=== PATIENT | male | born 1950 | race Caucasian/White ===

== ENCOUNTER → 2024-03-10 11:54 | Outpatient (REF) | payer MEDICARE, OTHER, SELFPAY ==
[2024-03-10 14:10] LABS: ALT (SGPT) 21 U/L (0-50); AST (SGOT) 33 U/L (17-59); Albumin 4.5 g/dl (3.5-5.0); Alkaline Phosphatase 79 U/L (38-126); Blood Urea Nitrogen 18 mg/dl (9-20); Calcium 9.9 mg/dl (8.4-10.2); Carbon Dioxide 30 mmol/L (22-30); Chloride 102 mmol/L (98-107); Glucose 79 mg/dl (70-99); HDL Cholesterol 66 mg/dl; LDL Cholesterol, Calculated 63 mg/dl; Potassium 4.4 mmol/L (3.5-5.1); Sodium 139 mmol/L (135-145); Total Bilirubin 1.7 mg/dl (0.2-1.3); Total Cholesterol 141 mg/dl (50-199); Total Protein 7.1 g/dl (6.3-8.2); Triglyceride 64 mg/dl (10-149); Very Low Density Lipoprotein 12 mg/dl (0-30); eGFR > 60.00
[2024-03-10 14:40] LABS: PSA, Total - Screen 2.55 ng/ml (0.0-4.0)
== END ==
LOC: REG 11:54
PROVIDERS: ATTENDING PHYSICIAN Family Medicine
DX: E78.2 Mixed hyperlipidemia (principal); Z12.5 Encounter for screening for malignant neoplasm of prostate
CPT/HCPCS: 36415; 80053; 80061; G0103

== ENCOUNTER → 2024-04-23 07:33 | Outpatient (REF) | payer MEDICARE, OTHER, SELFPAY | LOC: RAD 07:33 | PROVIDERS: ATTENDING PHYSICIAN Family Medicine | DX: N50.89 Other specified disorders of the male genital organs (principal); M79.89 Other specified soft tissue disorders | CPT/HCPCS: 76870; 93976 ==

== ENCOUNTER → 2024-09-10 11:40 | Outpatient (REF) | payer MEDICARE, OTHER, SELFPAY ==
[2024-09-10 15:18] LABS: HDL Cholesterol 58 mg/dl; LDL Cholesterol, Calculated 79 mg/dl; Total Cholesterol 152 mg/dl (50-199); Triglyceride 78 mg/dl (10-149); Very Low Density Lipoprotein 15 mg/dl (0-30)
[2024-09-10 15:46] LABS: TSH 1.28 uIU/ml (0.47-4.68)
== END ==
LOC: REG 11:40
PROVIDERS: ATTENDING PHYSICIAN Physician Assistant; FAMILY PHYSICIAN Family Medicine
DX: E78.2 Mixed hyperlipidemia (principal); R00.2 Palpitations
CPT/HCPCS: 36415; 80061; 84443

== ENCOUNTER → 2024-09-17 16:13 | Outpatient (REF) | payer MEDICARE, OTHER, SELFPAY | LOC: RAD 16:13 | PROVIDERS: ATTENDING PHYSICIAN Family Medicine | DX: R93.89 Abnormal findings on diagnostic imaging of other specified body structures (principal) | CPT/HCPCS: 72072 ==

== ENCOUNTER → 2024-09-18 09:43 | Outpatient (REF) | payer MEDICARE, OTHER, SELFPAY | LOC: RCS 09:43 | PROVIDERS: ATTENDING PHYSICIAN Family Medicine | DX: R00.2 Palpitations (principal) | CPT/HCPCS: 93225; 93226 ==

== ENCOUNTER → 2024-10-27 13:30 | Outpatient (REF) | payer MEDICARE, OTHER, SELFPAY | LOC: RCS 13:30 | PROVIDERS: ATTENDING PHYSICIAN Student in an Organized Health Care Education/Training Program; FAMILY PHYSICIAN Family Medicine; REFERRING PHYSICIAN Specialist | DX: E78.2 Mixed hyperlipidemia (principal) | CPT/HCPCS: 93306 ==

== ENCOUNTER 2024-12-01 06:15 | Day surgery (SDC) | payer MEDICARE, OTHER, SELFPAY | END 2024-12-01 11:06 | disposition home or self-care (01) | LOC: GI 06:15 | PROVIDERS: ATTENDING PHYSICIAN Specialist; FAMILY PHYSICIAN Family Medicine | DX: R12 Heartburn (principal); K31.7 Polyp of stomach and duodenum; K22.89 Other specified disease of esophagus; K20.90 Esophagitis, unspecified without bleeding | CPT/HCPCS: 43239; 88305 ==

== ENCOUNTER → 2025-03-11 11:14 | Outpatient (REF) | payer MEDICARE, OTHER, SELFPAY ==
[2025-03-11 13:04] LABS: ALT (SGPT) 19 U/L (0-50); AST (SGOT) 27 U/L (17-59); Albumin 4.5 g/dl (3.5-5.0); Alkaline Phosphatase 73 U/L (38-126); Blood Urea Nitrogen 22 mg/dl (9-20); Calcium 9.4 mg/dl (8.4-10.2); Carbon Dioxide 29 mmol/L (22-30); Chloride 103 mmol/L (98-107); Glucose 78 mg/dl (70-99); HDL Cholesterol 48 mg/dl; LDL Cholesterol, Calculated 80 mg/dl; Potassium 4.7 mmol/L (3.5-5.1); Sodium 141 mmol/L (135-145); Total Bilirubin 1.8 mg/dl (0.2-1.3); Total Cholesterol 141 mg/dl (50-199); Total Protein 6.6 g/dl (6.3-8.2); Triglyceride 69 mg/dl (10-149); Very Low Density Lipoprotein 13 mg/dl (0-30); eGFR > 60.00
== END ==
LOC: REG 11:14
PROVIDERS: ATTENDING PHYSICIAN Family Medicine
DX: E78.2 Mixed hyperlipidemia (principal)
CPT/HCPCS: 36415; 80053; 80061

== ENCOUNTER → 2025-05-09 09:13 | Outpatient (REF) | payer MEDICARE, OTHER, SELFPAY ==
[2025-05-09 11:41] LABS: PSA, Total - Screen 2.97 ng/ml (0.0-4.0)
== END ==
LOC: REG 09:13
PROVIDERS: ATTENDING PHYSICIAN Nurse Practitioner Family
DX: Z12.5 Encounter for screening for malignant neoplasm of prostate (principal)
CPT/HCPCS: 36415; G0103

== ENCOUNTER → 2025-09-25 15:32 | Outpatient (REF) | payer MEDICARE, OTHER, SELFPAY ==
[2025-09-25 16:40] LABS: ALT (SGPT) 23 U/L (0-50); AST (SGOT) 29 U/L (17-59); Albumin 4.5 g/dl (3.5-5.0); Alkaline Phosphatase 68 U/L (38-126); Blood Urea Nitrogen 19 mg/dl (9-20); Calcium 9.4 mg/dl (8.4-10.2); Carbon Dioxide 32 mmol/L (22-30); Chloride 102 mmol/L (98-107); Glucose 82 mg/dl (70-99); HDL Cholesterol 55 mg/dl; LDL Cholesterol, Calculated 86 mg/dl; Potassium 3.9 mmol/L (3.5-5.1); Sodium 139 mmol/L (135-145); Total Protein 6.9 g/dl (6.3-8.2); Very Low Density Lipoprotein 17 mg/dl (0-30); eGFR > 60.00
== END ==
LOC: REG 15:32
PROVIDERS: ATTENDING PHYSICIAN Family Medicine
DX: E78.2 Mixed hyperlipidemia (principal)
CPT/HCPCS: 36415; 80053; 80061